=== PATIENT | male | born 1960 | race Caucasian/White ===

== ENCOUNTER 2019-01-30 20:02 | Emergency (ER) | payer MEDICARE, SELFPAY ==
[2019-01-30 20:03] VITALS: BP 148/90; PULSE 93; RESP 18; TEMP 37; O2SAT 97; BMI 24.5
--- NOTE | 2019-01-30 20:40 | RAD_ITS ---
STUDY: X-RAY - RIGHT HAND, ATTENTION THIRD FINGER REASON FOR EXAM: Male, 58 years old. Trauma TECHNIQUE: 3 view(s) of the finger were obtained. COMPARISON: None. FINDINGS: Normal metacarpal head. Normal metacarpophalangeal joint. Normal proximal phalanx. Normal middle phalanx. There is a comminuted fracture of the distal phalanx of the third digit with separation of the fracture fragment Normal proximal interphalangeal joint. Normal distal interphalangeal joint. RAD/Finger(s) Min 2 Views IMPRESSION: Acute comminuted displaced fracture of the distal phalanx of the third digit Electronically Signed: Joselito Mccloud MD at 20:58 EDT , Service support ,
[2019-01-30] MEDS: Diphth,Pertuss(Acell),Tet Vac 0.5 ML Vial IM (21:17)
[2019-01-30] MEDS: oxyCODONE 5 MG Tablet PO (22:32)
--- NOTE | 2019-01-30 22:56 | ED.VIS.UPPEX ---
History of Present Illness Chief Complaint: Upper Extremity Injury Informant: Patient, Family Occurred: Today - JPTA Context: Sudden Onset Timing: Continuous Quality of Pain: Aching Location: right middle finger Current Severity: Severe Maximum Severity: Severe Worsened by: palpation Narrative: Patient was drinking with a neighbor, holding his neighbor's dog on his wire leash when the dog saw another dog and suddenly took off, suddenly amputating the tip of his right middle finger in the process. He denies any other injury. He has had prior fusion of that finger. No other fingers were affected tonight. Last tetanus shot was over 10 years ago. They found the tip of his finger in the grass and put it back on and brought it with him. Past Medical History - Allergies and Home Meds Allergies/Adverse Reactions: Allergies No Known Allergies Allergy (Verified 01/30/19 20:05) Primary Care Physician: Care Physician,No Primary [Primary Care Provider] - Past Medical History: None Surgical History: - - RUE trauma surgery. Lives: With Family Smoking Status: Current every day smoker - Family History Maternal Family History: Reports: No pertinent history Paternal Family History: Reports: No pertinent history Review of Systems General: Denies: Chills, Fever Musculoskeletal: Reports: Extremity Pain Skin: Reports: Wounds Neurological: Denies: Weakness, Parasthesia Physical Exam Vital Signs/Narrative: Vital Signs Temp Pulse Resp BP Pulse Ox 01/30/19 20:03 98.6 F 93 18 148/90 H 97 Reviewed. General: Well nourished, Well developed Head: Normocephalic, Atraumatic Skin: Trauma - Complete fingertip amputation of right long finger, the amputated portion includes the entire nail, it is oblique with more tissue present at the volar aspect then dorsally. It appears clean, the bone is palpable and barely exposed from the proximal segment. There is no attachment left of the distal piece which is simply resting on the finger. There is pulsatile bleeding. Distal flexor function intact. He is not able to bend at the PIPJ, which was fused. Neurological: Alert, Oriented x3, Cranial nerves II-XII grossly intact, Normal Strength, Normal Sensation, Normal Gait Psychological: Normal affect, Normal Mood, - - Pleasantly intoxicated Diagnostic/Tx/Re-eval Clinical Impression(s) from Imaging Studies Finger X-Ray 01/30/19 20:40 IMPRESSION: Acute comminuted displaced fracture of the distal phalanx of the third digit Electronically Signed: Joselito Mccloud MD at 20:58 EDT , Service support , - Medical Decision Making X-ray shows bony involvement and loss of the distal aspect of the tuft. I performed a digital block to assist with pain control, which helped quite a bit. I applied manual pressure on the arterial bleeding after soaking his finger in saline/chlorhexidine, and giving him injections of Adacel and Ancef 1 g. After wrapping the finger after controlling the pulsatile bleeding down to a trickle, there is now fresh clot present throughout and no pulsatile or significant bleeding. I discussed with Dr. hansen who was available for plastics, discussing the presence of exposed bone. I also explained the fact that there is no tissue for me to cake puller and sutured down. He understood and said it was reasonable to discharge the patient with a bulky dressing and Betadine against the skin/pulp/tissue, placing the patient on doxycycline, and he will see him in the office tomorrow to discuss further options and management. Patient was given an oxycodone in a home pack and is comfortable with this plan. - Critical Care Time Critical care time (excluding procedures): 30-74 minutes - 31 min, 75-104 minutes, Including time spent:, Discussing w/Patient &/or Family/[employer] Science Teacher, Discussing w/Consultants, Performing Direct Patient Care at Bedside - control of arterial hemorrhage from fingertip amputation site Procedures Procedure(s): Digital block -- right long finger, isopropanol prep, total 5 cc plain 1% lidocaine with good results and no complications or arterial puncture. ED Disposition - Plan for ED Patient: Disposition: Home or Assisted Living Diagnosis: Complete traumatic transphalangeal amputation of right middle finger, initial encounter, Arterial hemorrhage Instructions: FINGER TIP AMPUTATION, Open Treatment Prescriptions: Doxycycline Hyclate 1 cap PO BID #10 capsule Oxycodone HCl/Acetaminophen [Percocet 5/325] 1 tablet PO Q4H PRN PRN 2 Days #10 tablet PRN Reason: Pain Referrals: Nirmal Hansen MD [STAFF PHYSICIAN] - 1 Day for another exam (call tomorrow for appt time (afternoon))
[2019-01-30 23:23] VITALS: BP 136/82; PULSE 87; RESP 18; O2SAT 96
== END 2019-01-30 23:58 | disposition home or self-care (01) ==
PROVIDERS: Emergency Provider Emergency Medicine
DX: S68.612A Complete traumatic transphalangeal amputation of right middle finger, initial encounter (principal); W23.0XXA Caught, crushed, jammed, or pinched between moving objects, initial encounter; Y93.89 Activity, other specified; Y92.9 Unspecified place or not applicable; F17.200 Nicotine dependence, unspecified, uncomplicated
CPT/HCPCS: 64450; 73140; 90471; 90715; 96372; 99283

== ENCOUNTER 2019-01-31 13:52 | Day surgery (SDC) | payer MEDICARE, SELFPAY ==
[2019-01-31] VITALS (7 sets, daily range): BP systolic 113–134; BP diastolic 69–93; PULSE 68–94; RESP 16–20; TEMP 36.4–36.8; O2SAT 93–100; BMI 24.5; BMI 24.2
[2019-01-31] MEDS: Cefazolin 2 GM in 0.9% Normal Saline 100 ML IV (15:12)
--- NOTE | 2019-01-31 15:30 | BON_PTH ---
PATIENT: CHU BELLO LOC: [facility] [place] U#:[id number] AGE/SX: 58/M ROOM: RE01/31/[address]: Dr. Nirmal Aviles MD : 1960 BED: DIS: 01/31/2019 SPEC #: [id number] RECD: 02/03/19 08:47 STATUS: PILY REDorothy #: [id number] GIDEON: 01/31/19 15:[address]: Nirmal Aviles DEPT: SURGICAL PATHOLOGY RECD BY: Marcus Zeng ENTERED: 02/03/19 10:57 SP TYPE: Bone OTHR DR: No Primary Care Phys Tissues: A - Bone of hand, NOS B - Finger, NOS Procedures: Decalcification bone/plaque Surgery Specimen Level III HEADER OPERATION: Revision amputation right middle finger PRE-OP DIAGNOSIS: Partial traumatic transphalangeal amputation, right middle finger TISSUE SUBMITTED: A - Bone from revision amputation, right middle finger, B - Soft tissue from revision amputation, right middle finger MICROSCOPIC DIAGNOSIS A. Bone from revision amputation, right middle finger: Pieces of bone with focal area of hemorrhage and reactive changes. A piece of skin with underlying tissue, no pathologic diagnosis. B. Soft tissue from revision amputation right middle finger: Pieces of skin, fibroadipose and fibroconnective tissue and reactive changes. JAN:nura 02/07/19 MICROSCOPIC DESCRIPTION Slides are reviewed. GROSS DESCRIPTION A - Received in fixative is one container labeled with the patient's name and designated bone amputation from right middle finger. The specimen consists of multiple fragments of bone that in aggregate measure 2 x 2 x 0.4 cm. The entire specimen is submitted in one cassette after decalcification. B - Received in fixative is one container labeled with the patient's name and designated soft tissue from revision amputation, right middle finger. The specimen consists of multiple irregular fragments of light brady soft tissue and skin that in aggregate measure 2.5 x 2 x 0.3 cm. The entire specimen is submitted in one cassette. / JAN:nura 02/03/19 TC:5 CPT: 09797 x2, 93323
[2019-01-31] MEDS: Mupirocin Ointment 22gm Tube 1 APPLIC (16:12)
--- NOTE | 2019-01-31 16:21 | HP.PCM_ITS ---
History and Physical Date of Admission: 01/31/19 HISTORY OF PRESENT ILLNESS 58 year old man presents with a traumatic amputation right long finger tip when he caught his finger on a retractable dog leash last night. He went to the ED and the wound was cleansed. Bone was exposed. X-ray showed a comminuted fracture distal phalanx tuft. Patient is right hand dominant. He presents today for further evaluation and treatment. PAST MEDICAL HISTORY Cholecystitis PAST SURGICAL HISTORY Fusion of fingers cholecystectomy ALLERGIES No Known Allergies MEDICATIONS Doxycycline Oxycodone HCl/Acetaminophen [Percocet 5/325] FAMILY HISTORY Other - Anxiety SOCIAL HISTORY Smoking Status: Current every day smoker counseling given: provider counseling, counseling >10 minutes alcohol intake: current substance use type: does not use REVIEW OF SYSTEMS General - Denies fever, fatigue, and weight loss. Eyes - Denies cataracts and glaucoma. ENT - Denies nasal congestion and sore throat. Endocrine - Denies excessive thirst and urination. Skin - Denies suspicious lesions and skin cancer. Musculoskeletal - Denies joint pain, joint stiffness, weakness of muscles and joints, and arthritis. Has back pain. Has right long finger tip pain from a traumatic amputation. Neuro - Denies headaches. Cardiovascular - Denies chest pain, fatigue, and shortness of breath with exertion. Psych - Denies anxiety. Has depression. Respiratory - Denies chronic cough and shortness of breath. Has sleep apnea. Patient is a smoker. Gastrointestinal - Denies nausea, vomiting, diarrhea, and constipation. Hematologic - Denies abnormal bruising and bleeding. Genitourinary - Denies hematuria and urinary frequency. PHYSICAL EXAMINATION General - Alert and Oriented. HEENT - PERRL. EOMI. Throat is clear. Neck - Supple and nontender. No cervical adenopathy. Lungs - Clear to auscultation. Heart - Regular rate and rhythm. Abdomen - Soft and nondistended. Extremities - FROM left upper extremity. No axillary adenopathy. Radial pulses are palpable. On the right upper extremity, he has a tip amputation right long fingertip that is dorsally oblique. Bone is seen. Nail plat has been avulsed. His PIP joint is fused from a previous injury. Fingers are warm with good capillary refill. Neuro - CN II-XII grossly intact. Psych - Normal mood and affect. ASSESSMENT 1. Partial traumatic transphalangeal amputation right long finger, dorsally oblique. 2. Open displaced fracture distal phalanx tuft right long finger. 3. Smoker. PLAN X-ray reviewed. It showed the comminuted displaced fracture of distal phalanx of the third digit. Patient needs operative debridement. Hopefully can close the defect without too much shortening. The volar skin flap gives us a chance for that. If not possible, will amputation into the middle phalanx. Patient voices understanding and wishes to proceed. The patient's finger is fused at the PIP joint. I won't be able to do a thenar flap or a cross finger flap because of the stiffness in his PIP joint. The other option to maintain length is an abdominal pedicle flap. I think that is too much surgery for a tip amputation issue especially in a digit that is already fused at the PIP joint. Also it would require 2 procedures with the second one occurring in 3 weeks. So in order to get back to work the closest, would recommend revision right long finger tip amputation, possibly into the middle phalnx. Surgery will be done under general anesthesia ion an outpatient basis. Will encourage range of motion exercises to minimize stiffness. OT referral may be necessary. Patient was informed of the risks and complications of the procedure including alternatives to surgery. These were discussed with the patient personally. Patient voices understanding and wishes to proceed. Some of the risks and complications were included in a form from the [employer]. Some of the risks and complications that were discussed included but were not inclusive of failure to diagnose including symptom relief, pain, infection, numbness, stiffness, loss of digit, RSD (CRPS), need for further surgery, contracture, and wound healing problems. Encouraged patient to stop smoking as it may have deleterious effects on wound healing.
--- NOTE | 2019-01-31 16:23 | OP.PCM_ITS ---
Report of Operation Date of Procedure: 01/31/19 Pre-Operative Diagnosis: 1. Partial traumatic transphalangeal amputation right long finger, dorsally oblique. 2. Open displaced fracture distal phalanx tuft right long finger. 3. Smoker. Post-Operative Diagnosis: Same. Surgery/Procedure Performed:: Revision tip amputation right long finger through DIP joint. Description of Surgical Findings:: 58 year old man presents with a traumatic amputation right long finger tip when he caught his finger on a retractable dog leash last night. He went to the ED and the wound was cleansed. Bone was exposed. X-ray showed a comminuted fracture distal phalanx tuft. Patient is right hand dominant. Patient has a fusion of the PIP joint of the right long finger. So flap options to maintain length of the finger (i.e., thenar flap and cross finger flap) are not possible because the finger cannot bend. There is no need for a regional flap to maintain length because it would add complexity to the surgery and healing process. And in the end, the finger still will be fused and not able to move. Therefore the best option and most practical option for the patient would be to proceed with a revision tip amputation. He voiced understanding and wished to proceed. Patient was informed of the risks and complications of the procedure including alternatives to surgery. These were discussed with the patient personally. Patient voices understanding and wishes to proceed. Some of the risks and complications were included in a form from the [employer]. Some of the risks and complications that were discussed included but were not inclusive of failure to diagnose including symptom relief, pain, infection, numbness, stiffness, loss of digit, RSD (CRPS), need for further surgery, contracture, and wound healing problems. Encouraged patient to stop smoking as it may have deleterious effects on wound healing. Total tourniquet time - 40 m minutes. slide attendant: None Type of Anesthesia:: General Specimen's removed: Amputation stump right long finger tip soft tisse and bone to Pathology. Drains: None. Estimated Blood Loss (mL): 2 ml. Description of Procedure: Patient was taken to OR in supine position and was placed under general anesthesia. The right hand was prepped and draped in the usual fashion. SCD's were placed for DVT prophylaxis. Perioperative antibiotics were given intravenously. Using xylocaine with epinephrine, a digital metacarpal block was infiltrated to aid in postop pain relief. A digital tourniquet was then applied. Under loupe magnification, I dissected free the exposed bone from the surrounding soft tissue. I then removed the remaining nail bed complex to minimize nail cyst growth in the future. Using a rongeur the exposed bone was sharply debrided. The base of the distal phalanx was still present. However, I could not close the amputation stump wound with the volar skin flap. Therefore the remaining distal phalanx bone was removed with the rongeur. The condylar ends of the articular surface of the middle phalanx were rasped to smooth out the bony edges at the stump. I was then able to close the amputation stump wound with the volar skin flap. I then dissected out the radial and ulnar digital nerves and placed them on stretch as I excised the ends and allowed the proximal nerve ends to retract to minimize neuroma formation at the stump. The amputation stump tissue was sent to Pathology for analysis. I then closed the amputation stump with 5-0 Monocryl interrupted sutures for the deep dermis and subcutaneous tissue. The skin was approximated with 5-0 Nylon simple interrupted sutures. The tourniquet was released prior to wound closure. Hemostasis was obtained with electrocautery. The tourniquet time was 40 minutes. Antibiotic ointment was applied to the incision followed by Xeroform gauze followed by 2x2 gauze and a 2 inch Lily wrap. This was followed by a small compression sahra wrap. Patient tolerated the procedure well and was sent to PACU in satisfactory condition. Patient will be sent home on antibiotics and pain medication. He will keep his right hand elevated during the initial postop period. Patient will followup in a week for a wound check and for discussion of the pathology report. Will remove the sutures in 2-3 weeks. Grafts/Implants Used: None. - Complications None. - Admit VTE Documentation VTE Present on Admission: No VTE Mechan Device Prophylaxis: SCD's VTE Pharm Prophylaxis ordered?: No Code Visit Surgery Charges CPT - 46497 ICD-10 - S68.622A, S62.632B, F17.200
--- NOTE | 2019-01-31 16:34 | DCINST_ITS ---
You will use the following diet at home:: No restrictions Discharge Activity: May not drive while taking narcotic pain medications., May Shower - after the dressing is removed in the office., - - no heavy lifting. elevate right arm. May shower in (days): 1 - wear plastic bag over rigbt hand when showering. May resume sexual activity in: No Restrictions Weight Bearing Status: Weight bearing as tolerated Keep extremity elevated above heart level: Right Arm Call your doctor if your incision/area has: Continuous Slow Oozing, Sudden Increased Bleeding, Increased Pain/ Swelling, Increased Redness, Foul Smelling Discharge, Swelling at the incision site Call your doctor if you observe: Fever of 101 or Higher, Coldness, Increased Pain, Shortness of breath, Chest pain, Calf discomfort, Uncontrolled pain Suture Line Care: - - apply antibiotic ointment to suture line daily after operative dressing is removed in the office. Change Dressing in (Days):: 7 - will change dressing in the office. Cleanse incision/area with: - - wear plastic bag over right hand when showering. Allergies/Adverse Reactions: Allergies No Known Allergies Allergy (Verified 01/31/19 12:20) Medications to take at Discharge Doxycycline [Vibramycin] 100 mg PO BID #28 cap 01/31/19 Oxycodone HCl/Acetaminophen [Percocet 5-325] 1 tab PO Q4H PRN PRN 7 Days #40 tab 01/31/19 The following prescriptions were given: Oxycodone HCl/Acetaminophen [Percocet 5-325] 1 tab PO Q4H PRN PRN 7 Days #40 tab PRN Reason: Pain Prescription Printed Doxycycline [Vibramycin] 100 mg PO BID #28 cap Prescription Printed Primary Care Physician: Care Physician,No Primary [Primary Care Provider] - Test Results: Test results from this visit will be discussed in further detail at your follow- up appointment, if applicable. Please Follow Up With: Nirmal Aviles MD When: one week. call [phone] for appt. Proposed Discharge Date: 01/31/19
== END 2019-01-31 17:37 | disposition home or self-care (01) ==
LOC: SDC 13:55 → AC 13:56
PROVIDERS: Anesthesiology; Referring Provider Surgery; Visit Provider Surgery
PROC: (CPT 26951; principal; 2019-01-31 15:15)
DX: S68.622A Partial traumatic transphalangeal amputation of right middle finger, initial encounter (principal); S62.632B Displaced fracture of distal phalanx of right middle finger, initial encounter for open fracture; W23.0XXA Caught, crushed, jammed, or pinched between moving objects, initial encounter; Y93.9 Activity, unspecified; Y92.9 Unspecified place or not applicable; F17.200 Nicotine dependence, unspecified, uncomplicated
CPT/HCPCS: 26951; 80320; 88304; 88311; J7120; G0480; J2405

== ENCOUNTER 2023-03-29 19:12 | Emergency (ER) | payer MEDICARE, SELFPAY ==
[2023-03-29] VITALS (7 sets, daily range): BP systolic 113–142; BP diastolic 67–102; PULSE 67–78; RESP 17–21; TEMP 36.6; O2SAT 96–100; BMI 25.4
--- NOTE | 2023-03-29 19:15 | RAD_ITS ---
STUDY: X-RAY - RIGHT SHOULDER REASON FOR EXAM: Male, 62 years old. FALL TECHNIQUE: 2 view(s) of the shoulder. COMPARISON: None. FINDINGS: There is anterior inferior dislocation of the glenohumeral articulation. There is hypertrophic osteoarthrosis of the acromioclavicular joint with inferior osseous spur formation. Normal acromion. Normal humeral head and visualized proximal humerus. The soft tissue structures are unremarkable. There is no demonstrated fracture. Normal visualized pulmonary apex. RAD/Shoulder min 2 Views IMPRESSION: Glenohumeral dislocation. Electronically Signed: Tomi Ontiveros MD at 19:55 EDT ,
--- NOTE | 2023-03-29 19:53 | EX.ED.UPPERE ---
HPI History of Present Illness Chief Complaint: Upper Extremity Injury Informant: patient Narrative Narrative: Patient presents with right shoulder dislocation. Patient states he slipped in the shower. He hit his elbow. But all the pain is in the right shoulder. He bumped his lip but states he never really had his head. Did not lose consciousness has no headache or neck pain. He is not short of breath. He states only his shoulder hurts. He did dislocate this once when he was in his late 20s. It was reduced and placed in a sling and he followed up. But no surgery had to be done. He is on no blood thinners. He denies any prior medications. PFSH PFSH Allergy/AdvReac Type Severity Reaction Status Date / Time No Known Allergies Allergy Verified 03/29/23 19:15 Family History Other Anxiety Surgical History Fusion of fingers History of cholecystectomy Social History Smoking Status: Heavy Smoker (>10/day) counseling given: provider counseling and counseling >10 minutes alcohol intake: current substance use type: does not use additional social history: DOES NOT USE ASPIRIN DOES NOT USE IBUPROFEN ROS ROS ED Constitutional Constitutional ED: Denies chills or fever(s) Eyes Eyes: Denies blurry vision or change in vision ENT ENT ED: Reports other Details: Slight bump to his left upper lip but no pain. ; Denies rhinorrhea or sore throat Cardiovascular Cardiovascular: Denies chest pain, palpitations or racing heartbeat Respiratory/Chest Respiratory/Chest: Denies cough or dyspnea Gastrointestinal Gastrointestinal: Denies nausea or vomiting Musculoskeletal Musculoskeletal: Reports other Details: See history of present illness. ; Denies back pain, myalgias or neck pain Integumentary Denies Abrasions Neurologic Neurologic: Reports paresthesias; Denies headache(s) or weakness Hematologic/Lymphatic Hematologic/Lymphatic: Denies easy bleeding or easy bruising EXAM Physical Exam Narrative Exam Narrative: Patient is awake alert no acute distress. Sitting on bed. I can see from the door that his right shoulder does look dislocated. HEENT: Mild swelling left upper lip but no sign of maxillary or mandibular tenderness or dental pain. No bleeding. No laceration. No other sign of any injury anywhere on his head or scalp. Mallampati of 1. Neck is supple and no pain with motion or palpation. Lungs are clear bilaterally. No subcu air. No tenderness with AP or lateral compression. Breath sounds are normal bilaterally. Oxygen level was normal with saturations 99% on room air. Heart is regular. No murmur or muffled tones. Peripheral pulses including the right upper extremity are normal. Back shows no tenderness cervical thoracic or lumbar tenderness. Extremities show what appears to be anterior dislocation of the right shoulder. He does have a little bit of decreased sensation over the deltoid area. But distally he is neurovascularly intact. Skin shows no abrasions. Const Vital Signs: 03/29/23 19:13 Temperature 97.9 F Temperature Source Temporal Pulse Rate 67 Respiratory Rate 18 Blood Pressure 113/67 Blood Pressure Mean 82 Pulse Ox 99 Oxygen Delivery Method Room Air MDM MDM MDM Narrative Medical decision making narrative: Discussed options with patient. We tried to reintroduce this without anesthesia using traction rotation and massage but were not able to get it back in. We discussed risk benefits and options. Patient has never had reaction to anesthesia. His last meal was over 4 hours ago. He has a Mallampati 1. No chronic medical conditions. I think he is appropriate for procedural sedation and reduction. Procedure: Procedural sedation and reduction of right shoulder dislocation: Risk benefits options were discussed. Timeout was performed. A total of 140 milligrams of propofol was used for sedation. Reduction of the shoulder was achieved with traction countertraction. It easily reduced. I stayed in the room until the patient was alert. Total sedation time was 4 minutes despite being in the room for probably over 15 minutes. My independent her potation the patient's two-view right shoulder after reduction shows good placement. Patient is awake alert wants to go home. We will have him follow-up with orthopedics. A sling is on. Procedures Procedural Sedation 1 (Initial Baseline): Consent Signed: Yes Any Problems With Anesthesia: No You/Your family experience fever (hyperthermia) w/anesthesia: No Sedation medication: Propofol Dose: 140 Route: IV Total Moderate Sedation Units: 4 Maliampati Score: Class I ASA Classification: I Discharge Plan Triage Chief Complaint: Upper Extremity Injury ED Provider: Aaron Howard Dx/Rx/DC Orders Clinical Impression: Fall in shower, Closed anterior dislocation of right shoulder Instructions: ED Dislocation: Shoulder (Reduced) Primary Care Provider: Care Physician,No Primary Referrals: Ramírez Magallanes DO [Med Staff - Active Staff] - 3-5 Days Care Physician,No Primary [Primary Care Provider] - Disposition Disposition: Home, Self Care
[2023-03-29] MEDS: Propofol 200 MG/20 ML Vial IV BOLUS (20:43)
--- NOTE | 2023-03-29 21:10 | RAD_ITS ---
STUDY: X-RAY - RIGHT SHOULDER REASON FOR EXAM: Male, 62 years old. Status post reduction TECHNIQUE: 2 view(s) of the shoulder. COMPARISON: Earlier the same day FINDINGS: Normal glenohumeral articulation. There is reduction of previously seen dislocation. There is hypertrophic osteoarthrosis of the acromioclavicular joint with inferior osseous spur formation. Normal acromion. Normal humeral head and visualized proximal humerus. The soft tissue structures are unremarkable. There is no demonstrated fracture. Normal visualized pulmonary apex. RAD/Shoulder min 2 Views IMPRESSION: Reduction of dislocation. Electronically Signed: Tomi Ontiveros MD at 21:50 EDT ,
== END 2023-03-29 22:24 | disposition home or self-care (01) ==
PROVIDERS: Emergency Provider Emergency Medicine; Visit Provider Emergency Medicine
DX: S43.014A Anterior dislocation of right humerus, initial encounter (principal); F17.200 Nicotine dependence, unspecified, uncomplicated; W18.2XXA Fall in (into) shower or empty bathtub, initial encounter
CPT/HCPCS: 73030; 99284; J7030; A4216